=== PATIENT | female | born 1970 | race Caucasian/White ===

== ENCOUNTER 2018-06-01 10:18 | Inpatient (IN) | payer OTHER ==
[2018-06-01] MEDS ORDERED: LIDOCAINE 2% (SDV) 5 ML INJ (11:52)
[2018-06-01] MEDS ORDERED: MIDAZOLAM 1 MG/ML 2 ML INJ (11:52)
[2018-06-01] MEDS ORDERED: PROPOFOL 40 ML (11:52)
[2018-06-01] MEDS ORDERED: FENTAnyl 50 MCG/ML VIAL (11:52)
[2018-06-01] MEDS ORDERED: ONDANSETRON 4 MG INJ (11:53)
[2018-06-01] MEDS ORDERED: DEXAMETHASONE 4 MG/ML 1 ML INJ (11:53)
[2018-06-01] MEDS ORDERED: FAMOTIDINE 20 MG INJ (11:54)
[2018-06-01] MEDS: ACETAMINOPHEN 500 MG TAB PO (12:19)
[2018-06-01 12:45] LABS: INR 1.08; PROTIME 14.1 Sec (11.9-14.9); PT RATIO 1.1
[2018-06-01 12:46] LABS: PARTIAL THROMBOPLASTIN TIME 29.5 Sec (23.0-35.0)
[2018-06-01] MEDS ORDERED: PHENYLephrine (100 MCG/ML) 5ML SYG (13:20)
[2018-06-01] MEDS ORDERED: morphine (1 MG/ML) 10ML SYRINGE IV ×2 (13:30)
[2018-06-01] MEDS ORDERED: DIPHENHYDRAMINE 50 MG INJ IV (13:30)
[2018-06-01] MEDS ORDERED: FENTAnyl 50 MCG/ML VIAL IV ×2 (13:30)
[2018-06-01] MEDS ORDERED: MEPERIDINE 25 MG INJ IV (13:30)
[2018-06-01] MEDS ORDERED: OXYCODONE/ACETAMINOPHEN (5/325) TAB PO (13:30)
[2018-06-01] MEDS ORDERED: LABETALOL HCL 20MG INJ IV (13:30)
[2018-06-01] MEDS ORDERED: HYDROmorphONE 1 MG/5 ML IV SYRINGE IV (13:30)
[2018-06-01] MEDS ORDERED: ALBUTEROL 0.083% (NEB) 2.5 MG/3 ML AMP HHN (13:30)
[2018-06-01] MEDS ORDERED: KETOROLAC 30 MG INJ (13:55)
[2018-06-01] MEDS: HYDROmorphONE 1 MG/5 ML IV SYRINGE IV (15:00)
[2018-06-01] MEDS: ONDANSETRON 4 MG INJ IV ×2 (15:00→18:33)
[2018-06-01] MEDS: OXYCODONE/ACETAMINOPHEN (5/325) TAB PO (15:01)
[2018-06-01 16:45] LABS: INR 1.13; PROTIME 14.7 Sec (11.9-14.9); PT RATIO 1.1
[2018-06-01] MEDS ORDERED: NACL 0.9% 3 ML SYG IV (18:00)
[2018-06-01] MEDS ORDERED: HEPARIN 1000 UNITS/ML 10 ML INJ IV (18:00)
[2018-06-01 18:44] LABS: ANION GAP 9 (5-13); CARBON DIOXIDE 23 mmol/L (21-31); CHLORIDE 107 mmol/L (97-110); GLUCOSE 108 mg/dl (70-220); SODIUM 139 mmol/L (135-144)
[2018-06-01 18:45] LABS: CALCIUM 8.8 mg/dl (8.4-10.2); Estimated GFR 55 mL/min (>60)
[2018-06-01 18:49] LABS: BLOOD UREA NITROGEN 27 mg/dl (7-20); CREATININE 1.06 mg/dl (0.44-1.00)
[2018-06-01] MEDS: HEPARIN 25000 UNITS/250 ML 250 ML IV (20:02)
[2018-06-01] MEDS: WARFARIN 3 MG TAB PO (20:07)
[2018-06-01 20:25] LABS: WHITE BLOOD COUNT 2.1 10^3/ul (4.8-10.8)
[2018-06-01 20:25] LABS: ABNORMAL IP MESSAGE 1; HEMATOCRIT 32.4 % (37.0-47.0); HEMOGLOBIN 10.2 g/dl (12.0-16.0); MEAN CORPUSCULAR HEMOGLOBIN 27.6 pg (29.0-33.0); MEAN CORPUSCULAR HGB CONC 31.5 g/dl (32.0-37.0); MEAN CORPUSCULAR VOLUME 87.8 fl (82.0-101.0); MEAN PLATELET VOLUME 12.3 fl (7.4-10.4); PLATELET COUNT 74 10^3/UL (140-415); RED BLOOD COUNT 3.69 10^6/ul (4.20-5.40); RED CELL DISTRIBUTION WIDTH 13.6 % (11.5-14.5)
[2018-06-01 20:27] LABS: POSITIVE DIFF @See below
[2018-06-01 20:28] LABS: ADD MAN DIFF? YES
[2018-06-01] MEDS: HEPARIN 1000 UNITS/ML 10 ML INJ IV (20:45)
[2018-06-01 21:01] LABS: BAND NEUTROPHILS % (M) 4 % (0-4); GIANT THROMBO% (M) 4 % (0-0); LYMPHOCYTES #M 0.1 10^3/ul (0.8-2.9); LYMPHOCYTES % (M) 8 % (15-51); MONOCYTES % (M) 2 % (0-11); MYELOCYTES % (M) 1 % (0-0); PLATELET ESTIMATE DECREASED; REACTIVE LYMPHOCYTES% (M) 2 % (0-0); SEG NEUT #M 1.7 10^3/ul (1.6-7.5); SEGMENTED NEUTROPHILS (M) % 83 % (39-77); SMUDGE%M 57 % (0-0)
[2018-06-01] MEDS: HYDROCODONE/APAP (5/325) TAB PO (22:49)
[2018-06-02] MEDS: morphine 2 MG INJ IV (01:44)
[2018-06-02] MEDS: ZOLPIDEM 5 MG TAB PO ×2 (01:44→21:46)
[2018-06-02 06:39] LABS: ADD MAN DIFF? NO
[2018-06-02 06:50] LABS: ABNORMAL IP MESSAGE 1; EOSINOPHILS % 0.3 % (0.0-7.0); HEMATOCRIT 28.3 % (37.0-47.0); LYMPHOCYTES # 0.6 10^3/ul (0.8-2.9); LYMPHOCYTES % 16.4 % (15.0-51.0); MEAN CORPUSCULAR HEMOGLOBIN 27.9 pg (29.0-33.0); MEAN CORPUSCULAR HGB CONC 31.8 g/dl (32.0-37.0); MEAN CORPUSCULAR VOLUME 87.6 fl (82.0-101.0); MEAN PLATELET VOLUME 13.6 fl (7.4-10.4); MONOCYTE # 0.3 10^3/ul (0.3-0.9); MONOCYTES % 7.6 % (0.0-11.0); NEUTROPHIL # 2.6 10^3/ul (1.6-7.5); NEUTROPHILS % 75.4 % (39.0-77.0); RED BLOOD COUNT 3.23 10^6/ul (4.20-5.40); RED CELL DISTRIBUTION WIDTH 13.9 % (11.5-14.5)
[2018-06-02 06:50] LABS: WHITE BLOOD COUNT 3.4 10^3/ul (4.8-10.8)
[2018-06-02 06:54] LABS: PLATELET COUNT 71 10^3/UL (140-415); POSITIVE DIFF @See below
[2018-06-02 07:02] LABS: INR 1.27; PROTIME 16.1 Sec (11.9-14.9); PT RATIO 1.3
[2018-06-02 07:16] LABS: PARTIAL THROMBOPLASTIN TIME 112.2 Sec (23.0-35.0)
[2018-06-02 07:29] LABS: ANION GAP 6 (5-13); BLOOD UREA NITROGEN 35 mg/dl (7-20); CARBON DIOXIDE 25 mmol/L (21-31); CHLORIDE 107 mmol/L (97-110); CREATININE 1.22 mg/dl (0.44-1.00); Estimated GFR 47 mL/min (>60); GLUCOSE 87 mg/dl (70-220); POTASSIUM 4.8 mmol/L (3.5-5.1); SODIUM 138 mmol/L (135-144)
[2018-06-02] MEDS: FOLIC ACID 1 MG TAB PO (08:42)
[2018-06-02] MEDS: FERROUS SULFATE (EC) 325 MG TAB PO (08:42)
[2018-06-02] MEDS: HEPARIN 25000 UNITS/250 ML 250 ML IV (08:48)
[2018-06-02] MEDS: ONDANSETRON 4 MG INJ IV (08:53)
[2018-06-02 14:59] LABS: HEMATOCRIT 28.7 % (37.0-47.0); HEMOGLOBIN 9.2 g/dl (12.0-16.0)
[2018-06-02 15:30] LABS: PARTIAL THROMBOPLASTIN TIME 85.9 Sec (23.0-35.0)
[2018-06-02 15:44] LABS: INR 1.26; PT RATIO 1.3
[2018-06-02] MEDS: WARFARIN 3 MG TAB PO (17:29)
[2018-06-02 20:57] LABS: PLATELET COUNT 77 10^3/UL (140-415)
[2018-06-02 21:17] LABS: INR 1.25; PROTIME 15.9 Sec (11.9-14.9); PT RATIO 1.2
[2018-06-02 21:40] LABS: PARTIAL THROMBOPLASTIN TIME 76.5 Sec (23.0-35.0)
[2018-06-02 22:18] LABS: THROMBIN TIME > 100.0 SEC (13.8-19.1)
[2018-06-03] MEDS: HEPARIN 25000 UNITS/250 ML 250 ML IV ×2 (02:09→17:32)
[2018-06-03 06:05] LABS: PLATELET COUNT 74 10^3/UL (140-415)
[2018-06-03 06:06] LABS: WHITE BLOOD COUNT 1.7 10^3/ul (4.8-10.8)
[2018-06-03 06:06] LABS: ABNORMAL IP MESSAGE 1; HEMATOCRIT 30.3 % (37.0-47.0); HEMOGLOBIN 9.5 g/dl (12.0-16.0); MEAN CORPUSCULAR HEMOGLOBIN 27.7 pg (29.0-33.0); MEAN CORPUSCULAR HGB CONC 31.4 g/dl (32.0-37.0); MEAN CORPUSCULAR VOLUME 88.3 fl (82.0-101.0); MEAN PLATELET VOLUME 11.5 fl (7.4-10.4); PLATELET COUNT 73 10^3/UL (140-415); RED BLOOD COUNT 3.43 10^6/ul (4.20-5.40); RED CELL DISTRIBUTION WIDTH 14.1 % (11.5-14.5)
[2018-06-03 06:08] LABS: ADD MAN DIFF? YES; POSITIVE DIFF @See below
[2018-06-03 06:32] LABS: ANION GAP 7 (5-13); BLOOD UREA NITROGEN 28 mg/dl (7-20); CALCIUM 8.8 mg/dl (8.4-10.2); CARBON DIOXIDE 25 mmol/L (21-31); CHLORIDE 110 mmol/L (97-110); Estimated GFR 48 mL/min (>60); GLUCOSE 89 mg/dl (70-220); PHOSPHORUS 3.6 mg/dl (2.5-4.9); POTASSIUM 4.5 mmol/L (3.5-5.1); SODIUM 142 mmol/L (135-144)
[2018-06-03 06:33] LABS: INR 1.39; PROTIME 17.3 Sec (11.9-14.9); PT RATIO 1.4
[2018-06-03 06:34] LABS: INR 1.32; PROTIME 16.6 Sec (11.9-14.9); PT RATIO 1.3
[2018-06-03 07:04] LABS: PARTIAL THROMBOPLASTIN TIME 75.9 Sec (23.0-35.0)
[2018-06-03 07:30] LABS: ANISOCYTOSIS 2+ (0-0); BAND NEUTROPHILS % (M) 2 % (0-4); BASOPHILS % (M) 1 % (0-2); EOSINOPHILS % (M) 2 % (0-7); GIANT THROMBO% (M) 1 % (0-0); LYMPHOCYTES #M 0.6 10^3/ul (0.8-2.9); LYMPHOCYTES % (M) 36 % (15-51); MICROCYTOSIS 2+ (0-0); MONOCYTES % (M) 4 % (0-11); PLATELET ESTIMATE DECREASED; POIKILOCYTOSIS 1+ (0-0); POLYCHROMASIA 1+ (0-0); SEG NEUT #M 0.9 10^3/ul (1.6-7.5); SEGMENTED NEUTROPHILS (M) % 55 % (39-77); SMUDGE%M 2 % (0-0)
[2018-06-03 07:52] LABS: THROMBIN TIME > 100.0 SEC (13.8-19.1)
[2018-06-03] MEDS: FERROUS SULFATE (EC) 325 MG TAB PO (08:03)
[2018-06-03] MEDS: FOLIC ACID 1 MG TAB PO (08:03)
[2018-06-03] MEDS: HYDROCODONE/APAP (5/325) TAB PO (08:08)
[2018-06-03] MEDS: BARIUM SULF 2% 450 ML BTL (BERRY SMOOTHIE) PO (08:26)
[2018-06-03 12:13] LABS: HEMATOCRIT 30.3 % (37.0-47.0); HEMOGLOBIN 9.7 g/dl (12.0-16.0)
[2018-06-03 16:46] LABS: HEMATOCRIT 32.7 % (37.0-47.0); HEMOGLOBIN 10.3 g/dl (12.0-16.0)
[2018-06-03] MEDS: HEPARIN 1000 UNITS/ML 10 ML INJ IV (17:31)
[2018-06-03] MEDS: WARFARIN 3 MG TAB PO (17:32)
[2018-06-03 23:44] LABS: PARTIAL THROMBOPLASTIN TIME 127.7 Sec (23.0-35.0)
[2018-06-04 00:58] LABS: HEMATOCRIT 31.1 % (37.0-47.0); HEMOGLOBIN 9.7 g/dl (12.0-16.0)
[2018-06-04 01:24] LABS: PARTIAL THROMBOPLASTIN TIME 109.2 Sec (23.0-35.0)
[2018-06-04] MEDS: HEPARIN 25000 UNITS/250 ML 250 ML IV ×2 (03:32→16:57)
[2018-06-04 06:53] LABS: ABNORMAL IP MESSAGE 1; HEMATOCRIT 31.8 % (37.0-47.0); MEAN CORPUSCULAR HEMOGLOBIN 27.6 pg (29.0-33.0); MEAN CORPUSCULAR HGB CONC 31.4 g/dl (32.0-37.0); MEAN CORPUSCULAR VOLUME 87.8 fl (82.0-101.0); MEAN PLATELET VOLUME 12.2 fl (7.4-10.4); PLATELET COUNT 90 10^3/UL (140-415); RED BLOOD COUNT 3.62 10^6/ul (4.20-5.40); RED CELL DISTRIBUTION WIDTH 13.9 % (11.5-14.5)
[2018-06-04 06:53] LABS: WHITE BLOOD COUNT 1.9 10^3/ul (4.8-10.8)
[2018-06-04 06:57] LABS: ADD MAN DIFF? YES; POSITIVE DIFF @See below
[2018-06-04 07:09] LABS: INR 1.39; PROTIME 17.3 Sec (11.9-14.9); PT RATIO 1.4
[2018-06-04 07:12] LABS: ANION GAP 7 (5-13); Estimated GFR 58 mL/min (>60)
[2018-06-04 07:20] LABS: BLOOD UREA NITROGEN 26 mg/dl (7-20); CALCIUM 9.1 mg/dl (8.4-10.2); CARBON DIOXIDE 26 mmol/L (21-31); CHLORIDE 109 mmol/L (97-110); CREATININE 1.01 mg/dl (0.44-1.00); GLUCOSE 94 mg/dl (70-220); PHOSPHORUS 4.3 mg/dl (2.5-4.9); POTASSIUM 4.6 mmol/L (3.5-5.1); SODIUM 142 mmol/L (135-144)
[2018-06-04] MEDS: FOLIC ACID 1 MG TAB PO (08:20)
[2018-06-04] MEDS: FERROUS SULFATE (EC) 325 MG TAB PO (08:20)
[2018-06-04 09:30] LABS: ANISOCYTOSIS 1+ (0-0); EOSINOPHILS % (M) 4 % (0-7); GIANT THROMBO% (M) 2 % (0-0); LYMPHOCYTES #M 0.5 10^3/ul (0.8-2.9); LYMPHOCYTES % (M) 28 % (15-51); METAMYELOCYTES %M 1 % (0-0); MICROCYTOSIS 1+ (0-0); MONOCYTE #M 0.1 10^3/ul (0.3-0.9); MONOCYTES % (M) 9 % (0-11); PLATELET ESTIMATE NORMAL; POIKILOCYTOSIS 1+ (0-0); RBC MORPHOLOGY COMMENT @See below; REACTIVE LYMPHOCYTES% (M) 1 % (0-0); SEGMENTED NEUTROPHILS (M) % 57 % (39-77); SMUDGE%M 2 % (0-0); WBC MORPHOLOGY COMMENT @See below
[2018-06-04] MEDS: POLYETHYLENE GLYCOL 17 GM PACKET PO (16:12)
[2018-06-04 16:20] LABS: PARTIAL THROMBOPLASTIN TIME 33.7 Sec (23.0-35.0)
[2018-06-04] MEDS: HEPARIN 1000 UNITS/ML 10 ML INJ IV (16:54)
[2018-06-04] MEDS: WARFARIN 3 MG TAB PO (17:36)
[2018-06-04 19:36] LABS: HEMATOCRIT 31.1 % (37.0-47.0); HEMOGLOBIN 9.9 g/dl (12.0-16.0)
[2018-06-04 20:26] LABS: PARTIAL THROMBOPLASTIN TIME > 180.0 Sec (23.0-35.0)
[2018-06-05 00:10] LABS: PARTIAL THROMBOPLASTIN TIME 43.4 Sec (23.0-35.0)
[2018-06-05] MEDS: HEPARIN 25000 UNITS/250 ML 250 ML IV ×2 (01:30→15:51)
[2018-06-05] MEDS: POLYETHYLENE GLYCOL 17 GM PACKET PO (06:16)
[2018-06-05] MEDS: FOLIC ACID 1 MG TAB PO (08:19)
[2018-06-05] MEDS: FERROUS SULFATE (EC) 325 MG TAB PO (08:19)
[2018-06-05 08:22] LABS: WHITE BLOOD COUNT 1.5 10^3/ul (4.8-10.8)
[2018-06-05 08:22] LABS: ABNORMAL IP MESSAGE 1; HEMATOCRIT 30.4 % (37.0-47.0); HEMOGLOBIN 9.7 g/dl (12.0-16.0); MEAN CORPUSCULAR HGB CONC 31.9 g/dl (32.0-37.0); MEAN CORPUSCULAR VOLUME 87.6 fl (82.0-101.0); MEAN PLATELET VOLUME 12.6 fl (7.4-10.4); PLATELET COUNT 89 10^3/UL (140-415); RED BLOOD COUNT 3.47 10^6/ul (4.20-5.40)
[2018-06-05 08:26] LABS: POSITIVE DIFF @See below
[2018-06-05 08:27] LABS: ADD MAN DIFF? YES
[2018-06-05 08:39] LABS: ANION GAP 7 (5-13); BLOOD UREA NITROGEN 23 mg/dl (7-20); CARBON DIOXIDE 26 mmol/L (21-31); CHLORIDE 106 mmol/L (97-110); CREATININE 0.92 mg/dl (0.44-1.00); Estimated GFR > 60 mL/min (>60); GLUCOSE 97 mg/dl (70-220); PHOSPHORUS 3.8 mg/dl (2.5-4.9); POTASSIUM 4.5 mmol/L (3.5-5.1); SODIUM 139 mmol/L (135-144)
[2018-06-05 08:44] LABS: INR 1.48; PROTIME 18.2 Sec (11.9-14.9); PT RATIO 1.4
[2018-06-05 08:45] LABS: PARTIAL THROMBOPLASTIN TIME 51.3 Sec (23.0-35.0)
[2018-06-05 09:04] LABS: ANISOCYTOSIS 1+ (0-0); BAND NEUTROPHILS % (M) 1 % (0-4); BASOPHILS % (M) 1 % (0-2); EOSINOPHILS % (M) 5 % (0-7); GIANT THROMBO% (M) 1 % (0-0); LYMPHOCYTES #M 0.3 10^3/ul (0.8-2.9); LYMPHOCYTES % (M) 22 % (15-51); MICROCYTOSIS 1+ (0-0); MONOCYTE #M 0.1 10^3/ul (0.3-0.9); MONOCYTES % (M) 8 % (0-11); MYELOCYTES % (M) 1 % (0-0); PLATELET ESTIMATE DECREASED; POIKILOCYTOSIS 1+ (0-0); REACTIVE LYMPHOCYTES% (M) 4 % (0-0); SEG NEUT #M 0.9 10^3/ul (1.6-7.5); SEGMENTED NEUTROPHILS (M) % 58 % (39-77); SMUDGE%M 13 % (0-0)
[2018-06-05] MEDS: MAGNESIUM CITRATE 300 ML BTL PO (13:03)
[2018-06-05 17:17] LABS: PARTIAL THROMBOPLASTIN TIME 61.1 Sec (23.0-35.0)
[2018-06-05] MEDS: WARFARIN 3 MG TAB PO (17:19)
[2018-06-05 23:57] LABS: PARTIAL THROMBOPLASTIN TIME 115.1 Sec (23.0-35.0)
[2018-06-06] MEDS: HEPARIN 25000 UNITS/250 ML 250 ML IV ×3 (00:40→17:08)
[2018-06-06 06:56] LABS: ABNORMAL IP MESSAGE 1; HEMATOCRIT 32.9 % (37.0-47.0); HEMOGLOBIN 10.3 g/dl (12.0-16.0); MEAN CORPUSCULAR HEMOGLOBIN 27.7 pg (29.0-33.0); MEAN CORPUSCULAR HGB CONC 31.3 g/dl (32.0-37.0); MEAN CORPUSCULAR VOLUME 88.4 fl (82.0-101.0); MEAN PLATELET VOLUME 12.1 fl (7.4-10.4); PLATELET COUNT 101 10^3/UL (140-415); RED BLOOD COUNT 3.72 10^6/ul (4.20-5.40); RED CELL DISTRIBUTION WIDTH 13.8 % (11.5-14.5)
[2018-06-06 06:56] LABS: WHITE BLOOD COUNT 1.6 10^3/ul (4.8-10.8)
[2018-06-06 06:59] LABS: POSITIVE DIFF @See below
[2018-06-06 07:00] LABS: ADD MAN DIFF? YES
[2018-06-06 07:01] LABS: INR 1.52; PROTIME 18.6 Sec (11.9-14.9); PT RATIO 1.5
[2018-06-06 07:11] LABS: ANION GAP 5 (5-13); BLOOD UREA NITROGEN 25 mg/dl (7-20); CALCIUM 9.2 mg/dl (8.4-10.2); CARBON DIOXIDE 32 mmol/L (21-31); CHLORIDE 105 mmol/L (97-110); Estimated GFR 53 mL/min (>60); GLUCOSE 97 mg/dl (70-220); MAGNESIUM 2.8 mg/dl (1.7-2.5); PHOSPHORUS 4.1 mg/dl (2.5-4.9); SODIUM 142 mmol/L (135-144)
[2018-06-06 08:41] LABS: PARTIAL THROMBOPLASTIN TIME 104.9 Sec (23.0-35.0)
[2018-06-06] MEDS: FOLIC ACID 1 MG TAB PO (08:47)
[2018-06-06] MEDS: FERROUS SULFATE (EC) 325 MG TAB PO (08:47)
[2018-06-06 09:40] LABS: ANISOCYTOSIS 2+ (0-0); BAND NEUTROPHILS % (M) 1 % (0-4); BASOPHILS % (M) 1 % (0-2); EOSINOPHILS % (M) 7 % (0-7); LYMPHOCYTES #M 0.3 10^3/ul (0.8-2.9); LYMPHOCYTES % (M) 20 % (15-51); MICROCYTOSIS 2+ (0-0); MONOCYTE #M 0.1 10^3/ul (0.3-0.9); MONOCYTES % (M) 11 % (0-11); MYELOCYTES % (M) 2 % (0-0); OVALOCYTES 1+ (0-0); PLATELET ESTIMATE DECREASED; POIKILOCYTOSIS 1+ (0-0); POLYCHROMASIA 1+ (0-0); REACTIVE LYMPHOCYTES #M 0.1 10^3/ul (0.0-0.0); REACTIVE LYMPHOCYTES% (M) 7 % (0-0); SEG NEUT #M 0.8 10^3/ul (1.6-7.5); SEGMENTED NEUTROPHILS (M) % 51 % (39-77); SMUDGE%M 4 % (0-0)
[2018-06-06 17:00] LABS: PARTIAL THROMBOPLASTIN TIME 97.4 Sec (23.0-35.0)
[2018-06-06] MEDS: WARFARIN 10 MG TAB PO (17:05)
[2018-06-07] LABS: PARTIAL THROMBOPLASTIN TIME 93.9 Sec (23.0-35.0)
[2018-06-07 07:12] LABS: ABNORMAL IP MESSAGE 1; HEMATOCRIT 30.4 % (37.0-47.0); HEMOGLOBIN 9.7 g/dl (12.0-16.0); MEAN CORPUSCULAR HEMOGLOBIN 28.2 pg (29.0-33.0); MEAN CORPUSCULAR HGB CONC 31.9 g/dl (32.0-37.0); MEAN CORPUSCULAR VOLUME 88.4 fl (82.0-101.0); MEAN PLATELET VOLUME 12.5 fl (7.4-10.4); PLATELET COUNT 105 10^3/UL (140-415); RED BLOOD COUNT 3.44 10^6/ul (4.20-5.40); RED CELL DISTRIBUTION WIDTH 14.1 % (11.5-14.5)
[2018-06-07 07:16] LABS: ADD MAN DIFF? YES; POSITIVE DIFF @See below
[2018-06-07 07:58] LABS: ANION GAP 8 (5-13); BLOOD UREA NITROGEN 25 mg/dl (7-20); CALCIUM 8.9 mg/dl (8.4-10.2); CARBON DIOXIDE 27 mmol/L (21-31); CHLORIDE 103 mmol/L (97-110); CREATININE 1.04 mg/dl (0.44-1.00); Estimated GFR 56 mL/min (>60); GLUCOSE 93 mg/dl (70-220); MAGNESIUM 2.5 mg/dl (1.7-2.5); PHOSPHORUS 4.7 mg/dl (2.5-4.9); POTASSIUM 4.7 mmol/L (3.5-5.1); SODIUM 138 mmol/L (135-144)
[2018-06-07 08:19] LABS: INR 1.67; PT RATIO 1.6
[2018-06-07] MEDS: FERROUS SULFATE (EC) 325 MG TAB PO (08:21)
[2018-06-07] MEDS: FOLIC ACID 1 MG TAB PO (08:21)
[2018-06-07 08:52] LABS: PARTIAL THROMBOPLASTIN TIME 99.1 Sec (23.0-35.0)
[2018-06-07] MEDS: HEPARIN 25000 UNITS/250 ML 250 ML IV (09:06)
[2018-06-07] MEDS: WARFARIN 10 MG TAB PO (16:28)
[2018-06-08 06:22] LABS: HEMATOCRIT 32.2 % (37.0-47.0); HEMOGLOBIN 10.1 g/dl (12.0-16.0); MEAN CORPUSCULAR HEMOGLOBIN 27.7 pg (29.0-33.0); MEAN CORPUSCULAR HGB CONC 31.4 g/dl (32.0-37.0); MEAN CORPUSCULAR VOLUME 88.5 fl (82.0-101.0); PLATELET COUNT 112 10^3/UL (140-415); RED BLOOD COUNT 3.64 10^6/ul (4.20-5.40); RED CELL DISTRIBUTION WIDTH 14.1 % (11.5-14.5)
[2018-06-08 06:22] LABS: WHITE BLOOD COUNT 2.2 10^3/ul (4.8-10.8)
[2018-06-08 06:30] LABS: ADD MAN DIFF? YES
[2018-06-08 06:40] LABS: PROTIME 21.3 Sec (11.9-14.9); PT RATIO 1.7
[2018-06-08 06:41] LABS: PARTIAL THROMBOPLASTIN TIME 64.7 Sec (23.0-35.0)
[2018-06-08 06:51] LABS: ANION GAP 8 (5-13); BLOOD UREA NITROGEN 27 mg/dl (7-20); CALCIUM 9.1 mg/dl (8.4-10.2); CARBON DIOXIDE 27 mmol/L (21-31); CHLORIDE 106 mmol/L (97-110); CREATININE 1.07 mg/dl (0.44-1.00); Estimated GFR 55 mL/min (>60); GLUCOSE 96 mg/dl (70-220); MAGNESIUM 2.5 mg/dl (1.7-2.5); PHOSPHORUS 4.4 mg/dl (2.5-4.9); POTASSIUM 4.8 mmol/L (3.5-5.1); SODIUM 141 mmol/L (135-144)
[2018-06-08] MEDS: FERROUS SULFATE (EC) 325 MG TAB PO (08:21)
[2018-06-08] MEDS: FOLIC ACID 1 MG TAB PO (08:21)
[2018-06-08 10:17] LABS: ANISOCYTOSIS 3+ (0-0); BAND NEUTROPHILS #M 0.1 10^3/ul (0.0-0.6); BAND NEUTROPHILS % (M) 5 % (0-4); EOSINOPHILS % (M) 4 % (0-7); GIANT THROMBO% (M) 1 % (0-0); HYPOCHROMASIA 1+ (0-0); LYMPHOCYTES #M 0.4 10^3/ul (0.8-2.9); LYMPHOCYTES % (M) 21 % (15-51); METAMYELOCYTES %M 1 % (0-0); MICROCYTOSIS 3+ (0-0); MONOCYTE #M 0.2 10^3/ul (0.3-0.9); MONOCYTES % (M) 13 % (0-11); PLATELET ESTIMATE DECREASED; POIKILOCYTOSIS 3+ (0-0); REACTIVE LYMPHOCYTES #M 0.1 10^3/ul (0.0-0.0); REACTIVE LYMPHOCYTES% (M) 7 % (0-0); SEG NEUT #M 1.1 10^3/ul (1.6-7.5); SEGMENTED NEUTROPHILS (M) % 49 % (39-77); SMUDGE%M 3 % (0-0)
[2018-06-08] MEDS: HEPARIN 25000 UNITS/250 ML 250 ML IV ×2 (10:42→15:54)
[2018-06-08] MEDS: WARFARIN 10 MG TAB PO (16:56)
[2018-06-08 20:30] LABS: INR 1.99; PROTIME 23.1 Sec (11.9-14.9); PT RATIO 1.8
[2018-06-08 20:44] LABS: PARTIAL THROMBOPLASTIN TIME 70.4 Sec (23.0-35.0)
[2018-06-09 04:27] LABS: INR 2.25; PROTIME 25.4 Sec (11.9-14.9)
[2018-06-09 04:39] LABS: PARTIAL THROMBOPLASTIN TIME 109.1 Sec (23.0-35.0)
[2018-06-09] MEDS: HEPARIN 25000 UNITS/250 ML 250 ML IV ×2 (04:59→12:07)
[2018-06-09 06:52] LABS: ADD MAN DIFF? NO
[2018-06-09 06:59] LABS: ABNORMAL IP MESSAGE 1; EOSINOPHILS # 0.1 10^3/ul (0.0-0.5); EOSINOPHILS % 3.9 % (0.0-7.0); HEMATOCRIT 30.9 % (37.0-47.0); HEMOGLOBIN 9.7 g/dl (12.0-16.0); LYMPHOCYTES # 0.6 10^3/ul (0.8-2.9); LYMPHOCYTES % 27.1 % (15.0-51.0); MEAN CORPUSCULAR HEMOGLOBIN 27.6 pg (29.0-33.0); MEAN CORPUSCULAR HGB CONC 31.4 g/dl (32.0-37.0); MEAN CORPUSCULAR VOLUME 87.8 fl (82.0-101.0); MEAN PLATELET VOLUME 12.3 fl (7.4-10.4); MONOCYTE # 0.2 10^3/ul (0.3-0.9); MONOCYTES % 11.1 % (0.0-11.0); NEUTROPHIL # 1.1 10^3/ul (1.6-7.5); PLATELET COUNT 101 10^3/UL (140-415); RED BLOOD COUNT 3.52 10^6/ul (4.20-5.40); RED CELL DISTRIBUTION WIDTH 14.2 % (11.5-14.5)
[2018-06-09 06:59] LABS: WHITE BLOOD COUNT 2.1 10^3/ul (4.8-10.8)
[2018-06-09 07:04] LABS: POSITIVE DIFF @See below
[2018-06-09 07:18] LABS: INR 2.31
[2018-06-09] MEDS: FERROUS SULFATE (EC) 325 MG TAB PO (08:17)
[2018-06-09] MEDS: FOLIC ACID 1 MG TAB PO (08:17)
[2018-06-09 11:49] LABS: INR 2.41; PROTIME 26.9 Sec (11.9-14.9); PT RATIO 2.1
[2018-06-09] MEDS: WARFARIN 10 MG TAB PO (17:09)
[2018-06-09 19:46] LABS: PARTIAL THROMBOPLASTIN TIME 70.9 Sec (23.0-35.0)
[2018-06-10] MEDS: HEPARIN 25000 UNITS/250 ML 250 ML IV ×2 (05:17→10:16)
[2018-06-10 08:38] LABS: WHITE BLOOD COUNT 1.8 10^3/ul (4.8-10.8)
[2018-06-10 08:38] LABS: ABNORMAL IP MESSAGE 1; HEMATOCRIT 31.4 % (37.0-47.0); MEAN CORPUSCULAR HGB CONC 31.8 g/dl (32.0-37.0); MEAN PLATELET VOLUME 12.5 fl (7.4-10.4); PLATELET COUNT 106 10^3/UL (140-415); RED BLOOD COUNT 3.57 10^6/ul (4.20-5.40); RED CELL DISTRIBUTION WIDTH 14.3 % (11.5-14.5)
[2018-06-10] MEDS: FOLIC ACID 1 MG TAB PO (08:54)
[2018-06-10] MEDS: FERROUS SULFATE (EC) 325 MG TAB PO (08:54)
[2018-06-10 08:56] LABS: INR 2.45; PROTIME 27.2 Sec (11.9-14.9); PT RATIO 2.1
[2018-06-10 08:57] LABS: ADD MAN DIFF? YES; POSITIVE DIFF @See below
[2018-06-10 09:56] LABS: PARTIAL THROMBOPLASTIN TIME 109.2 Sec (23.0-35.0)
[2018-06-10 10:34] LABS: ANISOCYTOSIS 1+ (0-0); BAND NEUTROPHILS #M 0.1 10^3/ul (0.0-0.6); BAND NEUTROPHILS % (M) 10 % (0-4); EOSINOPHILS % (M) 4 % (0-7); GIANT THROMBO% (M) 1 % (0-0); LYMPHOCYTES #M 0.5 10^3/ul (0.8-2.9); LYMPHOCYTES % (M) 28 % (15-51); MICROCYTOSIS 1+ (0-0); MONOCYTE #M 0.1 10^3/ul (0.3-0.9); MONOCYTES % (M) 10 % (0-11); MYELOCYTES % (M) 1 % (0-0); OVALOCYTES 1+ (0-0); PLATELET ESTIMATE DECREASED; POIKILOCYTOSIS 1+ (0-0); POLYCHROMASIA 1+ (0-0); REACTIVE LYMPHOCYTES% (M) 2 % (0-0); SEG NEUT #M 0.8 10^3/ul (1.6-7.5); SEGMENTED NEUTROPHILS (M) % 45 % (39-77); SMUDGE%M 2 % (0-0)
[2018-06-10] MEDS: ACETAMINOPHEN 325 MG TAB PO (11:01)
[2018-06-10] MEDS: SOD CHLORIDE 0.9% 500 ML IV (11:02)
[2018-06-10 11:24] LABS: ANION GAP 9 (5-13); BLOOD UREA NITROGEN 31 mg/dl (7-20); CALCIUM 9.4 mg/dl (8.4-10.2); CARBON DIOXIDE 25 mmol/L (21-31); CHLORIDE 105 mmol/L (97-110); Estimated GFR 59 mL/min (>60); GLUCOSE 89 mg/dl (70-220); MAGNESIUM 2.2 mg/dl (1.7-2.5); POTASSIUM 4.4 mmol/L (3.5-5.1); SODIUM 139 mmol/L (135-144)
[2018-06-10] MEDS: WARFARIN 10 MG TAB PO (17:34)
== END 2018-06-10 17:50 | disposition home or self-care (01) | DRG 745 ==
LOC: SDS 10:18 → REC 18:00 → TEL 18:55
PROC: 0UDB8ZZ Extraction of Endometrium, Via Natural or Artificial Opening Endoscopic (ICD-10-PCS; principal; 2018-06-01 12:30)
DX: N92.0 Excessive and frequent menstruation with regular cycle (principal); I48.91 Unspecified atrial fibrillation; Z95.2 Presence of prosthetic heart valve; D50.9 Iron deficiency anemia, unspecified; N84.0 Polyp of corpus uteri; Z79.01 Long term (current) use of anticoagulants
CPT/HCPCS: 70450; 71045; 74176; 80048; 83735; 84100; 84703; 85014; 85018; 85025; 85049; 85610; 85670; 85730; 88305; 93306